=== PATIENT | male | born 1960 | race Caucasian/White ===

== ENCOUNTER → 2017-11-29 | Outpatient (CLI) | payer OTHER | END | disposition home or self-care (01) | LOC: KCIC MRI 12:40 | DX: M48.061 Spinal stenosis, lumbar region without neurogenic claudication (principal); M51.27 Other intervertebral disc displacement, lumbosacral region; M12.88 Other specific arthropathies, not elsewhere classified, other specified site | CPT/HCPCS: 72148 ==

== ENCOUNTER → 2018-01-20 | Outpatient (CLI) | payer OTHER ==
[~2018-01-20] MED LIST: CHOL500016 PO; IOHEXOL 180 MG/ML 10 ML VIAL. ONE; LIDOCAINE 2% PF 2ML VIAL. ONE; NAPR220C4 PO; methylPREDNISolone ACETATE 40 MG/ML VIAL. ONE; methylPREDNISolone ACETATE 80 MG/ML VIAL. ONE
--- NOTE | 2018-01-20 23:48 | PAIN ---
DATE OF SERVICE: 01/20/2018 INITIAL CONSULTATION FOR PAIN CLINIC CHIEF COMPLAINT: Low back and left lower extremity pain. HISTORY OF PRESENT ILLNESS: This is a 57-year-old male who presents with history of pain for about 6 months. Had pain over the years, but much worse over the past 6 months, started in the spring when he was packing up some fencing. Reports he had sciatica years ago when he was in the [employer] about 20 years ago, which was treated with some conservative measures and traction and got better and usually he would rest and get the pain to resolve. But this time, it has not resolved over the past 6 months. The patient did have the MRI scan of lumbar spine, which is showing moderate degenerative changes, most significant at L3-L4, L4-L5 and L5-S1, L3-L4 showing circumferential disk bulge with far left lateral disk protrusion with severe spinal canal stenosis with left lateral recess stenosis. L4-L5 shows right central disk protrusion with moderate neural foraminal stenosis and moderate spinal canal stenosis. L5-S1 shows a left central disk protrusion with moderate left neural foraminal stenosis. No spinal canal stenosis. The patient reports it awakens him from sleep at least 2-3 times a night, does not affect his bowel or bladder control, but does affect his ability to walk, usually notices it with walking, standing, change in positions and getting up from a sitting position specifically with pain radiating to the left hip, left lateral anterior thigh, anterior medial thigh, medial groin at times as well as into the foot with some numbness and tingling. The patient describes it as aching and burning, shooting and stabbing pain on the left side. The patient is doing exercise, which he does at home currently. He has not had any formal physical therapies recently. He also takes Aleve, which helps to a minor extent. The patient reports his disability rating from 0-10, 10 being the worst, is an 8 with family and home responsibilities and occupation, 6 with recreation and social activity, sexual behavior and self-care and no disability with life support activities. PAST MEDICAL HISTORY: Significant for hypertension, hearing loss. PREVIOUS SURGERY: Include a toenail removal at age 11. No other surgeries. CURRENT MEDICATIONS: Include naproxen and vitamin D. ALLERGIES: The patient has no known drug allergies. FAMILY HISTORY: Significant for no major medical problems or conditions he is aware of. SOCIAL HISTORY: The patient does not smoke, drinks alcohol only rarely. Reports he does not use any illegal, illicit or recreational drugs. He is , lives with his spouse, has 3 children living at home, lives locally in [place], [place]. REVIEW OF SYSTEMS: The patient's review of systems is positive for those items mentioned in the history of present illness. All systems reviewed and otherwise negative. It is complete, full and well documented on the patient's chart. PHYSICAL EXAMINATION: VITAL SIGNS: Today, the patient's blood pressure is 136/100, pulse is 76, respirations 18, temperature degrees Fahrenheit, height is 6 feet, weight is 206 pounds. GENERAL: The patient is awake, alert, oriented, appropriate, very pleasant demeanor. HEENT: Shows normocephalic, atraumatic. Extraocular movements intact and symmetrical. NECK: Shows anterior throat supple without palpable lymphadenopathy noted. Swallow reflex is symmetrical. CHEST: Shows normal on inspection. Breath sounds clear to auscultation bilaterally. HEART: Shows S1, S2 clear. No murmurs auscultated. ABDOMEN: Soft, nontender, nondistended. No palpable organomegaly is noted. No rebound or guarding demonstrated. BACK: Shows spine grossly in the midline. Normal appearing thoracic kyphosis and lumbar lordotic curvatures. The patient's back shows good rotational motion both laterally as well as extension and flexion of lumbar distribution. With palpation, there is some moderate tenderness in the inferior aspect of the lumbar paraspinous muscles, more on the left than the right, but only diffusely without radiation, without trigger points. No tenderness over the spinous processes, sacrum or sacroiliac regions. EXTREMITIES: The patient's lower extremities show deep tendon reflexes at 2+ in the patellar, 1+ tendo calcaneus tendons. Motor exam is strong with 5/5 dorsiflexion, extension, quadriceps and hamstring flexion. Peripheral pulses are 1+ posterior tibia. No peripheral edema is noted. Lower extremities are warm and dry to touch, equal in color and appearance. Straight leg raising is noted to be negative bilaterally for reproduction of radicular symptoms. Gaenslen's and Hal's maneuvers are negative bilaterally as well. The patient is able to stand, stand on his toes without difficulty or loss of balance, walks with a normal appearing gait, does not appear to favor the right or left lower extremity significantly for short walk in the office today, not using any assistive devices such as canes or walkers to ambulate. SKIN: The patient's skin shows warm and dry, good turgor. No edema. No sores, rashes or bruising. IMPRESSION: This is a 57-year-old male with: 1. Approximate 6-month history of increasing pain, low back into the left lower extremity as noted. 2. MRI scan of lumbar spine as noted. 3. Hypertension. 4. Hearing loss. PLAN: Options were discussed with the patient including conservative medical management, physical therapy, interventional techniques and he would like to pursue interventional techniques. We discussed a lumbar epidural steroid injection using description as well as anatomical models to describe the procedure. Risks were then discussed including, but not limited to bleeding, infection, possibility of epidural hematoma and subsequent neurological compromise, dural puncture, headaches, spinal cord and/or nerve damage, side effects of steroid medication and poor results regarding pain control. The patient understands and wished to proceed. The patient will return to the clinic in approximately 2 weeks for followup, was counseled on return appointment, activity level and side effects to be aware of. DIAGNOSIS: Lumbar radiculopathy with lumbar degenerative disk disease, lumbar spinal stenosis. PROCEDURE: Lumbar epidural steroid injection, translaminar approach at L3-L4 level using C-arm fluoroscopic guidance under sterile prep and drape using local anesthetic. MEDICATION INJECTED: A total of 120 mg Depo-Medrol plus 10 mL of preservative-free normal saline and 2 mL of Isovue for contrast. CONDITION AT DISCHARGE: Stable. The patient tolerated the procedure well, had no complications. SRIKANTH HERRERA MD DR: ZAY/tom JOB#: [id number] / [id number]
== END | disposition home or self-care (01) ==
LOC: PNCL 09:31
PROVIDERS: ATTEND Anesthesiology
DX: M51.16 Intervertebral disc disorders with radiculopathy, lumbar region (principal); M48.061 Spinal stenosis, lumbar region without neurogenic claudication; I10 Essential (primary) hypertension; H91.90 Unspecified hearing loss, unspecified ear; Z79.899 Other long term (current) drug therapy; Z98.890 Other specified postprocedural states; Z72.89 Other problems related to lifestyle
CPT/HCPCS: 62323; J1030; J1040; J2001; Q9965